=== PATIENT | male | born 1940 | race Caucasian/White ===

== ENCOUNTER 2025-01-18 08:45 | Day surgery (SDC) | payer OTHER ==
[2025-01-14 15:10] LABS: Absolute Basophils 0.1 K/uL (0-0.5); Absolute Eosinophils 0.8 K/uL (0-0.5); Absolute Monocytes 1.3 K/uL (0.1-1.3); Absolute Neutrophil 14.3 K/uL (1.8-8.0); Basophils % 0.5 % (0-1.3); Eosinophils % 4.7 % (0-4.4); Hematocrit 38.9 % (39.6-49.0); Hemoglobin 12.7 g/dL (13.6-17.9); MCH 28.8 pg (27.0-35.0); MCHC 32.6 g/dL (32.0-36.0); MCV 88.5 fL (80-100); Monocytes % 7.3 % (3.3-12.3); Neutrophils % 81.5 % (41.7-73.7); Nucleated Red Blood Cells % 0.1 % (0-0); Platelets 519 thou/uL (152-406); Red Cell Distribution Width 14.9 % (12.1-15.2)
[2025-01-14 15:19] LABS: PT Prothrombin Time 12.6 SECONDS (10-13.0); PTT, Activated Partial Thromb 31.8 SECONDS (27.2-37.4); Protime INR 1.11
[2025-01-14 15:25] LABS: Anion Gap 9.9 mEq/L (5.0-15.0); Potassium 3.9 mEq/L (3.5-5.1)
--- NOTE | 2025-01-14 15:37 | RAD REPORT ---
EXAMINATION: TWO VIEW CHEST XR CLINICAL INDICATION: PRE OP TECHNIQUE: 2 views of the chest was performed. COMPARISON: 09/19/2023 FINDINGS: Advanced COPD is present. There is mild linear atelectasis in both lung bases. Heart is moderately en larged. Numerous anterior wedge compression deformities affect the thoracic spine with vertebroplasty cement in situ. Dual lead pacer device is present. IMPRESSION: Advanced COPD.
--- NOTE | 2025-01-17 08:48 | EKG ---
Test Date: 2025-01-14 Test Time: 15:00:03 Clothing Worker: BROOKE MEASUREMENT RESULTS: Intervals: Rate: 60 ND: 210 QRSD: 88 QT: 446 QTc: 446 [place]: P: 71 ND: 210 QRS: 24 T: 44 INTERPRETIVE STATEMENTS: Electronic atrial pacemaker ST abnormality, possible digitalis effect Abnormal ECG Compared to ECG 09/19/2023 10:45:04 ST (T wave) deviation now present Electronically Signed On 01-17-25 08:40:18 CDT by Frank Knight
[2025-01-18 09:41] LABS: Absolute Basophils 0.2 K/uL (0-0.5); Absolute Eosinophils 0.6 K/uL (0-0.5); Absolute Lymphocytes (CBC) 0.9 K/uL (0.7-4.9); Absolute Monocytes 0.9 K/uL (0.1-1.3); Absolute Neutrophil 9.6 K/uL (1.8-8.0); Eosinophils % 5.2 % (0-4.4); Hematocrit 37.4 % (39.6-49.0); Hemoglobin 12.6 g/dL (13.6-17.9); MCH 29.4 pg (27.0-35.0); MCHC 33.6 g/dL (32.0-36.0); MCV 87.6 fL (80-100); MPV 9.3 fL (7.6-11.3); Monocytes % 7.5 % (3.3-12.3); Neutrophils % 78.3 % (41.7-73.7); Nucleated Red Blood Cells % 0.1 % (0-0); Platelets 417 thou/uL (152-406); RBC Red Blood Cell Count 4.27 M/uL (4.33-5.43)
[2025-01-18 09:55] LABS: Specific Gravity 1.017 (1.005-1.030); Sqamous Epithelial None Seen /HPF (None Seen); Urine Bacteria None Seen /HPF (<20); Urine Bilirubin NEGATIVE (Negative); Urine Blood Negative (Negative); Urine Clarity Clear (Clear); Urine Color Light-Yellow (Yellow); Urine Culture Reflex Order NOT NEEDED; Urine Glucose NEGATIVE (Negative); Urine Ketones NEGATIVE (Negative); Urine Micro Reflex YN NO BILL MICROSCOPIC; Urine Nitrite NEGATIVE (Negative); Urine Protein NEGATIVE (Negative); Urine RBC None Seen /HPF (None Seen); Urine Urobilinogen Normal (Normal); Urine WBC None Seen /HPF (<5)
[2025-01-18] MEDS ORDERED: NA CHLORIDE 0.9% 500 ML ONE (09:59)
[2025-01-18] MEDS ORDERED: HEPARIN 10,000 UNIT/10 ML VIAL IV ONE (10:03)
[2025-01-18] MEDS ORDERED: HEPA 1000U/500MLS 2,000 UNIT/1,000 ML BAG IV ONE (10:03)
[2025-01-18] MEDS ORDERED: TICAGRELOR 90 MG TABLET PO ONE (10:04)
[2025-01-18] MEDS ORDERED: VERAPAMIL HCL 10 MG/4 ML VIAL IV ONE (10:04)
[2025-01-18] MEDS ORDERED: CLOPIDOGREL 75 MG TABLET ONE (10:04)
[2025-01-18] MEDS ORDERED: MIDAZOLAM HCL 2 MG/2 ML INJ ONE (10:04)
[2025-01-18] MEDS ORDERED: LIDOCAINE 1% 20 ML MDV ONE (10:04)
[2025-01-18] MEDS ORDERED: HEPARIN 5000 UNIT/ML 1 ML VIAL ONE (10:04)
[2025-01-18] MEDS ORDERED: ASPIRIN 325 MG TAB ONE (10:04)
[2025-01-18] MEDS ORDERED: ATROPINE SULF 1 MG/10 ML SYR IV ONE (10:05)
[2025-01-18] MEDS ORDERED: FENTANYL CITR 100 MCG/2 ML ONE (10:05)
[2025-01-18 14:34] VITALS: O2SAT 98
[2025-01-18 15:02] VITALS: BP 146/65
--- NOTE | 2025-01-18 22:32 | OP ---
Date of Procedure: 01/18/2025 Surgeon: STEPHEN FAY Procedures Performed: 1. Selective coronary angiogram. 2. Left heart catheterization. Indication: Chest pain with positive stress test. Access: Right radial artery 6-Micronesian, closed with TR band. Complications: None. Bleeding: Less than 50 mL. Total Sedation Time: 1 hour. Description Of Procedure: After risks, benefits, and alternatives were explained, patient agreed to proceed and signed informed consent. The patient was brought into cardiac catheterization laboratory , prepped and draped in usual sterile fashion. Then, I accessed right radial artery using pediatric micropuncture kit, ultrasound guidance, fluoroscopy, placed 6-Micronesian Slender sheath and took 5-Micronesian [place] 4 catheter into the aortic root over J-wire across the aortic valve, measured the LVEDP. Pull back did not record any gradient. Engaged left main, took standard views, and then the RCA, took sta ndard views and removed the catheter and the sheath. Placed TR band with good hemostasis. Findings: 1. Left main: Very large and normal. 2. LAD: Very large vessel. Proximal segment there has focal 80% stenosis. The mid segment after di agonal takeoff has 70% stenosis and another tandem lesion 70% to 80% stenosis and then mid to distal 80% stenosis. Diagonal branches with luminal irregularities. 3. Left circumflex: High OM takeoff that has proximal 90% stenosis. Rest of the OM is normal. The circ becomes very small. 4. RCA: Large and dominant. Proximal 40% stenosis, mid 30% stenosis, distally 50% stenosis and the PLB and PDA with luminal irregularities. 5. LVEDP is 15 mmHg. Conclusion: Severe LAD and left circumflex disease, heavily calcified. Recommendations: I recommend bypass surgery due to the need of putting long stents in the LAD. The patient will discuss with the family and take the time over the weekend and come visit with me on Tue and make a decision. He is 84 years old. If he decides for an open heart surgery, then we will plan for complex PCI to do the LAD with atherectomy and shockwave lithotripsy to be done in [place] a nd the high OM disease will be fixed here in [place] if he decides to go this route. I will dis cuss further on Tuesday. The patient sent to recovery in stable condition. SR/MODL Voice ID: [id number] Report ID: [id number]
== END 2025-01-18 14:35 | disposition home or self-care (01) ==
LOC: CCL 08:45
PROVIDERS: ATTEND Internal Medicine
DX: I25.10 Atherosclerotic heart disease of native coronary artery without angina pectoris (principal); I35.1 Nonrheumatic aortic (valve) insufficiency; I70.203 Unspecified atherosclerosis of native arteries of extremities, bilateral legs; I10 Essential (primary) hypertension; E78.2 Mixed hyperlipidemia; Z95.0 Presence of cardiac pacemaker; Z79.82 Long term (current) use of aspirin; Z79.899 Other long term (current) drug therapy
CPT/HCPCS: 93005; 85025 ×2; 81001; 80048; 36415 ×2; 85610; 85730; 71046; 93458; 76937; C1893; Q9966; J1644; J2003; J2250; J3010; J7040; 99152; 99153; J0461